=== PATIENT | male | born 1995 | race Two or more races ===

== ENCOUNTER 2020-12-08 21:00 | Emergency (ER) | payer SELFPAY ==
[2020-12-08] MEDS ORDERED: Lactated Ringers 1,000 ML IV ONE (21:13)
[2020-12-08] MEDS ORDERED: LORazepam 2 MG/ML SDV IVPUSH ONE (21:29)
[2020-12-08 21:31] LABS: BLOOD UREA NITROGEN,BUN 6 mg/dL (7.0-18.0); CARBON DIOXIDE,CO2 23.4 mmol/L (21.0-32.0); CHLORIDE,CL 104 mmol/L (98-107); GLUCOSE RANDOM 90 mg/dL (74-106); POTASSIUM,K 3.5 mmol/L (3.5-5.1); SODIUM,NA 140 mmol/L (136-148)
[2020-12-08] MEDS ORDERED: Iopamidol 755 MG/ML 500 ML Multipack Bottle IVPUSH STA (22:02)
[2020-12-08] MEDS ORDERED: Bacitracin Oint 1 GM U/D Packet TOP ONE (22:39)
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
== END 2020-12-09 00:23 | disposition home or self-care (01) ==
LOC: MW.ED 21:00
DX: S22.059A Unspecified fracture of T5-T6 vertebra, initial encounter for closed fracture (principal); S80.812A Abrasion, left lower leg, initial encounter; G93.40 Encephalopathy, unspecified; F10.129 Alcohol abuse with intoxication, unspecified; M54.2 Cervicalgia; Y90.7 Blood alcohol level of 200-239 mg/100 ml; V89.2XXA Person injured in unspecified motor-vehicle accident, traffic, initial encounter
CPT/HCPCS: 36415; 70450; 71045; 71260; 72125; 72128; 72131; 72170; 74177; 80053; 80305; 80307; 82550; 83735; 85025; 85610; 96374; 99285; J2060; J7120; Q9967